=== PATIENT | female | born 1985 | race Caucasian/White ===

== ENCOUNTER 2017-04-01 01:25 | Emergency (ER) | payer BC ==
[2017-04-01] MEDS ORDERED: Ketorolac 30 MG/ML SDV IVPUSH ONE (01:42)
[2017-04-01] MEDS ORDERED: Tamsulosin 0.4 MG Cap.ER PO ONE (01:42)
[2017-04-01] MEDS: Sodium Chloride 0.9% 10 ML Syringe FLUSH PRN ×4 (01:45→02:16)
--- NOTE | 2017-04-01 01:50 | EDM.PDOC ---
ED HPI GENERAL MEDICAL PROBLEM - General Stated Complaint: KIDNEY STONES Time Seen by Provider: 04/01/17 01:25 Source of Information: Reports: Patient, Family History Limitations: Reports: No Limitations - History of Present Illness INITIAL COMMENTS - FREE TEXT/NARRATIVE: 31 y.o.w.f came with her family to the ed due to severe right flank pain, sudden onset. Pt had kidney stones in the past. Pt felt nauseated as well. BP 127/93 Pulse 103 RR 25 Temp 36.8 Pulse ox 97% on RA. Onset Date: 04/01/17 Onset Time: 00:05 Duration: Minutes:, Getting Worse, Intermittent Location: Reports: Back, Pelvis Quality: Reports: Ache, Burning, Dull, Pressure, Same as Previous Episode Severity: Severe Improves with: Reports: Medication Worsens with: Reports: Movement Context: Reports: Other (H/O Kidney stones) Associated Symptoms: Reports: Nausea/Vomiting Treatments [employer]: Reports: NSAIDS Right Flank Pain Score (Numeric/FACES): 10 - Related Data Allergies Allergy/AdvReac Type Severity Reaction Status Date / Time codeine Allergy Stomach Verified 04/01/17 01:42 Upset promethazine [From Phenergan] Allergy Anxiety Verified 04/01/17 01:42 CORN POLLEN Allergy Rash Uncoded 04/01/17 01:42 GRAIN SMUT Allergy Rash Uncoded 04/01/17 01:42 MOLD Allergy Rash Uncoded 04/01/17 01:42 Home Meds: Home Meds Montelukast [Singulair] 10 mg PO DAILY 12/17/12 [History] Acetaminophen/oxyCODONE [Percocet 325-5 MG] 1 each PO Q6HR #12 tab 04/01/17 [Rx] Ibuprofen [Motrin] 600 mg PO Q6H PRN #20 tab 04/01/17 [Rx] Loratadine [Claritin] 10 mg PO DAILY 04/01/17 [History] Ondansetron [Zofran ODT] 4 mg PO Q6H PRN #20 tab.dis 04/01/17 [Rx] Sulfamethoxazole/Trimethoprim [Bactrim Ds Tablet] 1 each PO BID #20 tablet 04/01 [Rx] Tamsulosin HCl [Flomax] 0.4 mg PO DAILY #5 cap.er.24h 04/01/17 [Rx] Topiramate [Topamax] 100 mg PO ASDIRECTED 04/01/17 [History] Past Medical History - Past Health History Medical/Surgical History: Denies Medical/Surgical History Social & Family History - Alcohol Use Days Per Week of Alcohol Use: 0 - Recreational Drug Use Recreational Drug Use: No ED ROS GENERAL - Review of Systems Review Of Systems: See Below Constitutional: Reports: No Symptoms HEENT: Reports: No Symptoms Respiratory: Reports: No Symptoms Cardiovascular: Reports: No Symptoms Endocrine: Reports: No Symptoms GI/Abdominal: Reports: No Symptoms : Reports: Flank Pain Musculoskeletal: Reports: No Symptoms Skin: Reports: No Symptoms Neurological: Reports: No Symptoms Psychiatric: Reports: No Symptoms Hematologic/Lymphatic: Reports: No Symptoms Immunologic: Reports: No Symptoms ED EXAM, RENAL/ - Physical Exam Exam: See Below Exam Limited By: No Limitations General Appearance: Alert, WD/WN, Moderate Distress Eye Exam: Bilateral Eye: Normal Inspection Ears: Normal External Exam Nose: Normal Inspection Throat/Mouth: Normal Inspection, Normal Lips Head: Atraumatic, Normocephalic Neck: Normal Inspection, Supple, Non-Tender Respiratory/Chest: No Respiratory Distress, Lungs Clear Cardiovascular: Normal Peripheral Pulses, Regular Rate, Rhythm GI/Abdominal: Normal Bowel Sounds, Other (right flank pain) (Female) Exam: Deferred Rectal (Female) Exam: Deferred Back Exam: Normal Inspection, Full Range of Motion Extremities: Normal Inspection, Normal Range of Motion Neurological: Alert, Oriented, CN II-XII Intact, Normal Cognition Psychiatric: Normal Affect, Normal Mood Skin Exam: Warm, Intact, Normal Color, No Rash Lymphatic: No Adenopathy Course - Vital Signs Text/Narrative:: 31 y.o.w.f came with her family to the ed due to severe right flank pain, sudden onset. Pt had kidney stones in the past. Pt felt nauseated as well. BP 127/93 Pulse 103 RR 25 Temp 36.8 Pulse ox 97% on RA. PE: WNWD W F with right flank pain Imagin mm stione r kidney, non obstructing 5 mm stone right ureter with mild hydronephrosis, official report is pending Labs: CBC nl Na 139 K 3.4 GFR 57 JESSIKA 16 Cr 1.1 Glc 134 Ca 9.6 UA pos for leucocytesterase + RBC Impression: Urolithiasis with mild hydro and UTI Tx: Toradol, Flomax, Bactrim, Percocet Reexam: Improved Plan: D/C with instructions Last Recorded V/S: Last Vital Signs Temp 36.1 C 04/01/17 01:25 Pulse 77 04/01/17 03:10 Resp 18 04/01/17 03:10 BP 121/79 04/01/17 03:10 Pulse Ox 100 04/01/17 03:10 - Orders/Labs/Meds Orders: Active Orders 24 hr Category Date Time Status Abdomen Pelvis wo Cont [CT] Stat Exams 04/01/17 01:42 Taken Peripheral IV Insertion Adult [OM.PC] Routine Oth 04/01/17 01:25 Ordered Labs: Laboratory Tests 04/01/17 04/01/17 04/01/17 Range/Units 01:37 01:55 01:55 WBC 11.8 (4.5-12.0) X10-3/uL RBC 4.78 (3.23-5.20) x10(6)uL Hgb 13.8 (11.5-15.5) g/dL Hct 39.8 (30.0-51.3) % MCV 83.3 (80-96) fL MCH 29.0 (27.7-33.6) pg MCHC 34.8 (32.2-35.4) g/dL RDW 12.0 (11.5-15.5) % Plt Count 237 (125-369) X10(3)uL MPV 6.5 L (7.4-10.4) fL Neut % (Auto) 71.3 (46-82) % Lymph % (Auto) 21.0 (13-37) % Clinton % (Auto) 6.4 (4-12) % Eos % (Auto) 1 (1.0-5.0) % Baso % (Auto) 0 (0-2) % Neut # (Auto) 8.4 H (1.6-8.3) # Lymph # (Auto) 2.5 (0.6-5.0) # Clinton # (Auto) 0.8 (0.0-1.3) # Eos # (Auto) 0.1 (0.0-0.8) # Baso # (Auto) 0.0 (0.0-0.2) # Sodium 139 (135-145) mmol/L Potassium 3.4 L (3.5-5.3) mmol/L Chloride 104 (100-110) mmol/L Carbon Dioxide 20 L (21-32) mmol/L BUN 16 (7-18) mg/dL Creatinine 1.1 H (0.55-1.02) mg/dL Est Cr Clr Drug Dosing 76.02 mL/min Estimated GFR (MDRD) 57 L (>60) BUN/Creatinine Ratio 14.5 (9-20) Glucose 145 H (80-116) mg/dL Calcium 9.4 (8.6-10.2) mg/dL Urine Color Yellow (YELLOW) Urine Appearance Cloudy (CLEAR) Urine pH 8.0 H (5.0-6.5) Ur Specific Lafferty 1.015 (1.010-1.025) Urine Protein Negative (NEGATIVE) mg/dL Urine Glucose (UA) Normal (NEGATIVE) mg/dL Urine Ketones 15 H (NEGATIVE) mg/dL Urine Occult Blood Moderate H (NEGATIVE) Urine Nitrite Negative (NEGATIVE) Urine Bilirubin Negative (NEGATIVE) Urine Urobilinogen Normal (NEGATIVE) mg/dL Ur Leukocyte Esterase Small H (NEGATIVE) Urine RBC 5-10 (0) Urine WBC 0-5 (0) Ur Squamous Epith Cells Few H (NS,R,O) Amorphous Sediment Many Urine Bacteria Rare H (NS) Meds: Medications Discontinued Medications Generic Name Dose Route Start Last Admin Trade Name Freq PRN Reason Stop Dose Admin Ketorolac Tromethamine 30 mg 04/01/17 01:42 04/01/17 01:53 Toradol IVPUSH 04/01/17 01:43 30 mg ONETIME ONE Administration Metoclopramide HCl 10 mg 04/01/17 02:07 04/01/17 02:16 Reglan IVPUSH 04/01/17 02:08 10 mg ONETIME STA Administration Ondansetron HCl 8 mg 04/01/17 01:55 04/01/17 02:03 Zofran IVPUSH 04/01/17 01:56 8 mg ONETIME ONE Administration Ondansetron HCl Confirm 04/01/17 02:00 04/01/17 02:04 Zofran Administered 04/01/17 02:01 Not Given Dose 8 mg .ROUTE .STK-MED ONE Oxycodone/Acetaminophen 1 tab 04/01/17 03:27 04/01/17 03:30 Percocet 325-5 Mg PO 04/01/17 03:28 1 tab ONETIME ONE Administration Sodium Chloride 10 ml 04/01/17 02:16 04/01/17 02:16 Saline Flush FLUSH 10 ml ASDIRECTED PRN Administration Keep Vein Open Tamsulosin HCl 0.4 mg 04/01/17 01:42 04/01/17 01:53 Flomax PO 04/01/17 01:43 0.4 mg ONETIME ONE Administration Trimethoprim/Sulfamethoxazole 1 tab 04/01/17 03:11 04/01/17 03:21 Septra Ds PO 04/01/17 03:12 1 tab ONETIME ONE Administration Departure - Departure Time of Disposition: 03:10 Disposition: Home, Self-Care 01 Condition: Good Clinical Impression: UTI (urinary tract infection) Urolithiasis Qualifiers: Urinary calculus location: lower urinary tract Qualified Code(s): N21.9 - Calculus of lower urinary tract, unspecified - Discharge Information Prescriptions: Acetaminophen/oxyCODONE [Percocet 325-5 MG] 1 each PO Q6HR #12 tab Ibuprofen [Motrin] 600 mg PO Q6H PRN #20 tab PRN Reason: mod pain Ondansetron [Zofran ODT] 4 mg PO Q6H PRN #20 tab.dis PRN Reason: Nausea Sulfamethoxazole/Trimethoprim [Bactrim Ds Tablet] 1 each PO BID #20 tablet Tamsulosin HCl [Flomax] 0.4 mg PO DAILY #5 cap.er.24h Instructions: Kidney Stones, [id number] Referrals: Sandra Benavidez [employer] DEVELOPER [Primary Care Provider] - Forms: ED Department Discharge, ED Return to Work/School Form Additional Instructions: Please increase water intake, please take the meds as recommeded, please f/u, come back if your symptoms get worse acutely - My Orders Last 24 Hours: My Active Orders 04/01/17 01:25 Peripheral IV Insertion Adult [OM.PC] Routine 04/01/17 01:42 Abdomen Pelvis wo Cont [CT] Stat - Assessment/Plan Last 24 Hours: My Active Orders 04/01/17 01:25 Peripheral IV Insertion Adult [OM.PC] Routine 04/01/17 01:42 Abdomen Pelvis wo Cont [CT] Stat
[2017-04-01] MEDS ORDERED: Ondansetron 4 MG/2 ML SDV IVPUSH ONE (01:55)
[2017-04-01] MEDS ORDERED: Ondansetron 4 MG/2 ML SDV ONE (02:00)
[2017-04-01] MEDS ORDERED: Metoclopramide 10 MG/2 ML SDV IVPUSH STA (02:07)
[2017-04-01] MEDS ORDERED: Sulfamethoxazole/Trimethoprim 800-160 MG Tab PO ONE (03:11)
[2017-04-01] MEDS ORDERED: Acetaminophen/oxyCODONE 325-5 MG Tab PO ONE (03:27)
[2017-04-01 03:34] VITALS: BP 121/79
== END 2017-04-01 03:30 | disposition home or self-care (01) ==
LOC: FB.ED 01:25
DX: N13.2 Hydronephrosis with renal and ureteral calculous obstruction (principal); N39.0 Urinary tract infection, site not specified; Z88.5 Allergy status to narcotic agent; Z91.018 Allergy to other foods; Z88.8 Allergy status to other drugs, medicaments and biological substances; Z79.899 Other long term (current) drug therapy
CPT/HCPCS: 36415; 74176; 80048; 81001; 85025; 96374; 96375; 99284; A9270-GY; J1885; J2405; J2765; J7050